=== PATIENT | female | born 1950 | race Caucasian/White ===

== ENCOUNTER → 2017-03-19 | Outpatient (CLI) | payer MEDICARE, OTHER ==
[~2017-03-19] MED LIST: ACET325 PO; ASPI81CH PO; B Complex1 EAC2 PO; CALCIT950 PO; CALCIUM PO; CETI5 PO; CIPR500 PO; CITA20 PO; HYDCHL25 PO; Hair, Skin & N1 EACH PO; Hydrocodone-Ap1 EA23 PO; LEVSOD100 PO; LISI20 PO; LOSA25 PO; Multivitamin1 EAC1 PO; Omega 3 Fish O1 EACH PO; Omeprazole20 M1; TRAM50 PO
== END ==
LOC: LAB SHORT 18:44
DX: N39.0 Urinary tract infection, site not specified (principal)
CPT/HCPCS: 87086

== ENCOUNTER → 2017-05-09 | Outpatient (CLI) | payer MEDICARE, OTHER | LOC: LAB EV 19:29 | DX: N39.0 Urinary tract infection, site not specified (principal) | CPT/HCPCS: 87086 ==

== ENCOUNTER 2017-12-08 18:33 | Emergency (ER) | payer MEDICARE, OTHER ==
[~2017-12-08] VITALS: Ht 157.5 cm; Wt 96.2 kg
== END 2017-12-08 20:54 | disposition home or self-care (01) ==
LOC: ER 18:33
DX: S61.211A Laceration without foreign body of left index finger without damage to nail, initial encounter (principal); Z23 Encounter for immunization; Z88.0 Allergy status to penicillin; Z88.2 Allergy status to sulfonamides; Z88.5 Allergy status to narcotic agent; Z88.8 Allergy status to other drugs, medicaments and biological substances; Z79.899 Other long term (current) drug therapy; W26.8XXA Contact with other sharp object(s), not elsewhere classified, initial encounter
CPT/HCPCS: 12001; 90471; 90714; 99282

== ENCOUNTER 2020-04-20 13:51 | Emergency (ER) | payer MEDICARE, OTHER ==
[~2020-04-20] VITALS: Ht 152.4 cm; Wt 84.8 kg
[~2020-04-20 13:51] MED LIST changes: -ACET325 PO; -CALCIT950 PO; -Hair, Skin & N1 EACH PO; -Omeprazole20 M1
[2020-04-20 14:52] LABS: BASOPHILS ABSOLUTE AUTO 0.08 K/mm3 (0.00-0.23); BASOPHILS PERCENT AUTO 1 % (0-2); EOSINOPHILS ABSOLUTE AUTO 0.22 K/mm3 (0.00-0.68); EOSINOPHILS PERCENT AUTO 2 % (0-6); Hematocrit 41.9 % (33.0-51.0); Hemoglobin 14.1 g/dL (11.5-16.0); IMMATURE GRAN ABSOLUTE AUTO 0.07 K/mm3 (0.00-0.10); IMMATURE GRAN PERCENT AUTO 1 % (0-1); LYMPHOCYTES ABSOLUTE AUTO 2.13 K/mm3 (0.84-5.20); LYMPHOCYTES PERCENT AUTO 21 % (21-46); MONOCYTES PERCENT AUTO 8 % (4-13); Mean Corpuscular HGB 30.2 pg (26.0-34.0); Mean Corpuscular HGB Conc 33.7 g/dL (31.5-36.5); Mean Corpuscular Volume 90 fL (80-100); Mean Platelet Volume 9.8 fL (9.1-12.4); NEUTROPHILS ABSOLUTE AUTO 6.82 K/mm3 (1.96-9.15); NEUTROPHILS PERCENT AUTO 67 % (41-73); Platelet Count 326 K/mm3 (150-400); RDW Coefficient Variation 12.9 % (11.7-14.2); RDW Standard Deviation 42.6 fL (35.1-46.3); Red Blood Cell Count 4.67 M/mm3 (3.80-5.20); White Blood Cell Count 10.12 K/mm3 (4.00-11.30)
[2020-04-20 15:03] LABS: Alanine Aminotransfer (ALT/SGP 25 U/L (12-78); Albumin, Blood 3.1 g/dL (3.4-5.0); Albumin/Globulin Ratio 0.8 (0.8-1.8); Alk Phos 57 U/L (50-136); Anion Gap 7 mmol/L (6-16); Aspartate Aminotrans (AST/SGOT 16 U/L (12-37); Bilirubin, Total 0.3 mg/dL (0.1-1.0); Blood Urea Nitrogen 17 mg/dL (8-24); Bun/Creatinine Ratio 23.3 (12.0-20.0); CO2, Blood 26 mmol/L (21-32); Calcium, Blood 8.1 mg/dL (8.5-10.1); Chloride, Blood 108 mmol/L (98-108); Creatinine, Blood 0.73 mg/dL (0.40-1.00); Globulin, Blood 3.7 g/dL (2.2-4.0); Glomerular Filtration Rate >60 (60-); Glucose, Blood 96 mg/dL (70-99); Potassium, Blood 3.5 mmol/L (3.5-5.5); Sodium, Blood 141 mmol/L (136-145); Total Protein, Blood 6.8 g/dL (6.4-8.2); Troponin I <0.015 ng/mL (0.000-0.040)
[2020-04-20] MEDS ORDERED: SYNTHROID150 MC1 PO (15:13)
[2020-04-20] MEDS ORDERED: ESTRADIOL42.5 GM VAG (15:13)
[2020-04-20] MEDS ORDERED: FLUTICASONE PRO16 GM (15:13)
[2020-04-20] MEDS ORDERED: CALCITRIOL PO (15:14)
[2020-04-20] MEDS ORDERED: CEVIMELINE HCL30 MG PO (15:15)
[2020-04-20] MEDS ORDERED: [UNRECOGNIZED DRUG - OTHER] TOP (15:17)
[2020-04-20] MEDS ORDERED: ACET500 PO (15:18)
[2020-04-20] MEDS ORDERED: Hair, Skin & N1 EACH PO (15:18)
[2020-04-20] MEDS ORDERED: VITAMIN B122500 MC1 PO (15:18)
[2020-04-20] MEDS ORDERED: MAGNESIUM250 MG PO (15:18)
[2020-04-20] MEDS ORDERED: ZINC15 PO (15:18)
[2020-04-20] MEDS ORDERED: Omeprazole20 M1 (15:18)
[2020-04-20] MEDS ORDERED: CALCIUM 250-D1 EACH PO (15:18)
[2020-04-20] MEDS ORDERED: VITAMIN D5000 UNIT PO (15:18)
[2020-04-20 15:44] LABS: Influenza A, PCR NEGATIVE (NEGATIVE); Influenza B, PCR NEGATIVE (NEGATIVE); Resp Syncytial Virus, PCR NEGATIVE (NEGATIVE); SARS-Cov-2 (COVID-19) PCR, MMC NEGATIVE (NEGATIVE)
[2020-04-20] MEDS ORDERED: CALCITRIOL0.5 MC1 PO (16:18)
[2020-04-20] MEDS ORDERED: HYDROCHLOROTH12.5 MG PO (16:18)
[2020-04-20] MEDS ORDERED: OMEPRAZOLE MAGN20 MG PO (17:58)
[2020-05-19] MEDS ORDERED: LOSA25 PO (13:40)
[2020-05-19] MEDS ORDERED: PILO5 PO (13:40)
== END 2020-04-20 18:20 | disposition home or self-care (01) ==
LOC: ER 13:51
PROVIDERS: Emergency Medicine
DX: R07.9 Chest pain, unspecified (principal); I10 Essential (primary) hypertension; Z79.899 Other long term (current) drug therapy; Z20.822 Contact with and (suspected) exposure to COVID-19; Z88.0 Allergy status to penicillin; Z88.2 Allergy status to sulfonamides; Z88.5 Allergy status to narcotic agent; Z88.8 Allergy status to other drugs, medicaments and biological substances
CPT/HCPCS: 0241U; 71045; 80053; 83690; 83880; 84484; 85025; 93005; 93010; 96361; 96374; 96375; 99285-25; A9270; C9113; J2060; J2405; J7030

== ENCOUNTER → 2020-04-29 | Outpatient (CLI) | payer MEDICARE, OTHER ==
[~2020-04-29] MED LIST changes: +ACET500 PO; +CALCITRIOL PO; +CALCITRIOL0.5 MC1 PO; +CALCIUM 250-D1 EACH PO; +CEVIMELINE HCL30 MG PO; +ESTRADIOL42.5 GM VAG; +FLUTICASONE PRO16 GM; +HYDROCHLOROTH12.5 MG PO; +Hair, Skin & N1 EACH PO; +MAGNESIUM250 MG PO; +OMEPRAZOLE MAGN20 MG PO; +Omeprazole20 M1; +PILO5 PO; +SYNTHROID150 MC1 PO; +VITAMIN B122500 MC1 PO; +VITAMIN D5000 UNIT PO; +ZINC15 PO; +[UNRECOGNIZED DRUG - OTHER] TOP
== END | disposition home or self-care (01) ==
LOC: LAB EV 13:40 → LAB SHORT 13:40
DX: K21.9 Gastro-esophageal reflux disease without esophagitis (principal)
CPT/HCPCS: 87338

== ENCOUNTER 2020-05-26 12:27 | Day surgery (SDC) | payer MEDICARE, OTHER ==
[~2020-05-26] VITALS: Ht 152.4 cm; Wt 87.9 kg
== END 2020-05-26 14:40 | disposition home or self-care (01) ==
LOC: ORSCSDS 12:27
PROVIDERS: Student in an Organized Health Care Education/Training Program
PROC: 0DB48ZX Excision of Esophagogastric Junction, Via Natural or Artificial Opening Endoscopic, Diagnostic (ICD-10-PCS; principal; 2020-05-26 13:45)
PROC: 0DB68ZX Excision of Stomach, Via Natural or Artificial Opening Endoscopic, Diagnostic (ICD-10-PCS; principal; 2020-05-26 13:45)
PROC: 0DB58ZX Excision of Esophagus, Via Natural or Artificial Opening Endoscopic, Diagnostic (ICD-10-PCS; principal; 2020-05-26 13:45)
DX: R13.10 Dysphagia, unspecified (principal); K21.9 Gastro-esophageal reflux disease without esophagitis; K29.70 Gastritis, unspecified, without bleeding; I10 Essential (primary) hypertension; E66.01 Morbid (severe) obesity due to excess calories; Z68.37 Body mass index [BMI] 37.0-37.9, adult; Z79.899 Other long term (current) drug therapy
CPT/HCPCS: 82947; 88305; 88342; J2405; J2704; J7120

== ENCOUNTER 2022-02-01 11:19 | Emergency (ER) | payer MEDICARE, OTHER ==
[~2022-02-01] VITALS: Ht 152.4 cm; Wt 90.7 kg
[2022-02-01] MEDS ORDERED: CLOBETTC TOP (14:31)
== END 2022-02-01 14:53 | disposition home or self-care (01) ==
LOC: ER 11:19
DX: S52.502D Unspecified fracture of the lower end of left radius, subsequent encounter for closed fracture with routine healing (principal); B37.49 Other urogenital candidiasis; Z88.0 Allergy status to penicillin; Z88.2 Allergy status to sulfonamides; Z88.6 Allergy status to analgesic agent; Z88.5 Allergy status to narcotic agent; Z88.8 Allergy status to other drugs, medicaments and biological substances; Z79.899 Other long term (current) drug therapy
CPT/HCPCS: 73110; A9270

== ENCOUNTER 2022-02-14 19:14 | Emergency (ER) | payer MEDICARE, OTHER ==
[~2022-02-14] VITALS: Ht 152.4 cm; Wt 89.4 kg
[~2022-02-14 19:14] MED LIST changes: +CLOBETTC TOP
[2022-02-14] MEDS ORDERED: CLIN150 PO (20:02)
[2022-02-14] MEDS ORDERED: FLUC200 PO (20:02)
== END 2022-02-14 20:06 | disposition home or self-care (01) ==
LOC: ER 19:14
DX: L25.8 Unspecified contact dermatitis due to other agents (principal); B37.9 Candidiasis, unspecified; L03.311 Cellulitis of abdominal wall; I10 Essential (primary) hypertension
CPT/HCPCS: A9270

== ENCOUNTER → 2023-08-17 | Outpatient (CLI) | payer MEDICARE, OTHER ==
[~2023-08-17] MED LIST changes: +CLIN150 PO; +FLUC200 PO
[2023-08-17 16:39] LABS: BASOPHILS PERCENT AUTO 1 % (0-2); EOSINOPHILS ABSOLUTE AUTO 0.46 K/mm3 (0.00-0.68); EOSINOPHILS PERCENT AUTO 5 % (0-6); Hematocrit 40.8 % (33.0-51.0); Hemoglobin 13.7 g/dL (11.5-16.0); IMMATURE GRAN ABSOLUTE AUTO 0.07 K/mm3 (0.00-0.10); IMMATURE GRAN PERCENT AUTO 1 % (0-1); LYMPHOCYTES ABSOLUTE AUTO 2.06 K/mm3 (0.84-5.20); LYMPHOCYTES PERCENT AUTO 21 % (21-46); MONOCYTES ABSOLUTE AUTO 0.92 K/mm3 (0.16-1.47); MONOCYTES PERCENT AUTO 9 % (4-13); Mean Corpuscular HGB 29.3 pg (26.0-34.0); Mean Corpuscular HGB Conc 33.6 g/dL (31.5-36.5); Mean Corpuscular Volume 87 fL (80-100); Mean Platelet Volume 9.5 fL (9.1-12.4); NEUTROPHILS ABSOLUTE AUTO 6.24 K/mm3 (1.96-9.15); NEUTROPHILS PERCENT AUTO 63 % (41-73); Platelet Count 329 K/mm3 (150-400); RDW Coefficient Variation 13.6 % (11.7-14.2); RDW Standard Deviation 42.5 fL (35.1-46.3); Red Blood Cell Count 4.68 M/mm3 (3.80-5.20); White Blood Cell Count 9.85 K/mm3 (4.00-11.30)
[2023-08-17 16:53] LABS: Albumin, Blood 3.6 g/dL (3.4-5.0); Albumin/Globulin Ratio 0.9 (0.8-1.8); Bilirubin, Total 0.3 mg/dL (0.1-1.0); Bun/Creatinine Ratio 12.5 (12.0-20.0); Calcium, Blood 8.7 mg/dL (8.5-10.1); Creatinine, Blood 0.88 mg/dL (0.40-1.00); Globulin, Blood 3.8 g/dL (2.2-4.0); Potassium, Blood 3.7 mmol/L (3.5-5.5); Total Protein, Blood 7.4 g/dL (6.4-8.2)
== END ==
LOC: LAB 16:35 → LAB SHORT 16:35
PROVIDERS: Physician Assistant Medical
DX: R07.9 Chest pain, unspecified (principal)
CPT/HCPCS: 80053; 84484; 85025

== ENCOUNTER → 2023-09-17 | Outpatient (CLI) | payer MEDICARE, OTHER | END | disposition home or self-care (01) | LOC: LAB SHORT 17:28 → LAB 17:28 | DX: L03.031 Cellulitis of right toe (principal) | CPT/HCPCS: 87070; 87205 ==